=== PATIENT | male | born 1945 | race Caucasian/White ===

== ENCOUNTER 2017-07-28 08:55 | Inpatient (IN) | payer MEDICARE, OTHER ==
[2017-07-28] MEDS ORDERED: FLAGYL 500 MG IVPB 500 MG/100 ML BAG IV ONE (10:48)
[2017-07-28] MEDS ORDERED: ENTEREG 12 MG PO ONE (11:38)
[2017-07-28] MEDS ORDERED: Lactated Ringers 1,000 ML IV SCH (12:00)
[2017-07-28] MEDS ORDERED: MEFOXIN 2 GM PREMIX** 2 GM/50 ML ML IV SCH (12:00)
[2017-07-28] MEDS ORDERED: Lactated Ringers 1,000 ML IV ONE ×5 (12:02→17:19)
[2017-07-28] MEDS ORDERED: DILAUDID 2 MG INJECTION IV ONE (19:26)
[2017-07-28] MEDS ORDERED: Morphine PCA 1 MG/ML 30 ML IV PRN ×2 (19:29→21:47)
[2017-07-28] MEDS ORDERED: D5W/0.45NS W/ 20mEq KCl 1000 ML 1,000 ML IV ONE (19:46)
[2017-07-28] MEDS ORDERED: Narcan 0.4 MG/ML IV PRN (21:48)
[2017-07-28] MEDS ORDERED: Zofran 4 MG/2 ML VIAL IV PRN (22:40)
[2017-07-28] MEDS ORDERED: LOPRESSOR 5 MG/5 ML INJECTION IV PRN (22:41)
[2017-07-29] MEDS: MEFOXIN 1 Gm/ D5W 50 Ml** 1 G/50 ML ML IV SCH ×4 (02:53→17:31)
[2017-07-29 05:41] LABS: Mean Cell Volume 72.6 fl (78-100); Mean Platelet Volume 8.9 fl (6-9.5); Platelet Count 322 K/mm3 (150-450); Red Blood Count 4.52 M/mm3 (4.1-5.6); Red Cell Distribution Width 18.6 % (11.5-14.0); White Blood Count 13.1 K/mm3 (4.0-10.5)
[2017-07-29] MEDS: D5W/0.45NS W/ 20mEq KCl 1000 ML 1,000 ML IV SCH ×2 (06:06→17:30)
[2017-07-29 06:10] LABS: ANISOCYTOSIS 1+; BAND 3 % (0.0-2.0); Hypochromia 1+; Microcytosis 2+; Polychromasia 1+; Total Cells Counted 100
[2017-07-29 06:11] LABS: Platelet Estimate NORMAL (NORMAL)
[2017-07-29 06:13] LABS: ANION GAP 15.3 MEQ/L (5-15); Carbon Dioxide 23.6 mEq/L (21-32); Potassium 4.9 mEq/L (3.5-5.1)
[2017-07-29] MEDS ORDERED: ENTEREG 12 MG PO SCH (10:00)
[2017-07-29] MEDS ORDERED: ENOXAPARIN SODIUM SQ SCH ×2 (10:00)
[2017-07-29] MEDS ORDERED: Sodium Chloride 0.9% 1000 ML 1,000 ML IV STA (11:18)
--- NOTE | 2017-07-29 11:39 | XRAY ---
Exam: Bladder ultrasound from 07/29/2017. Comparison: CT of the abdomen and pelvis from 07/15/2017. Indication: Urine retention, one day status post partial colon resection. Findings: The lead medical technologist left a note that obtaining the necessary images of the urinary bladder was "very difficult" due to the bandages at the incision site. Longitudinal and transverse images of the urinary bladder measure approximately 7.35 cm in width, 6.0 cm in AP depth, and 6.3 cm in length suggesting an estimated urinary bladder volume of 145.3 ml. The visualized urinary bladder lumen appears unremarkable. The visualized urinary bladder wall appears essentially unremarkable. Bowel gas artifact is seen within the adjacent pelvic adnexa. Impression: 1. Limited urinary bladder ultrasound revealing an estimated urinary bladder volume of 145.3 ml. No other gross urinary bladder abnormality is seen.
[2017-07-29] MEDS ORDERED: SUBLIMAZE 100 MCG/2 ML IV ONE (15:10)
[2017-07-29] MEDS ORDERED: DIPRIVAN 200 MG/20 ML IV ONE (15:10)
[2017-07-29] MEDS ORDERED: Zemuron 100 MG/10 ML IV ONE (15:10)
[2017-07-29] MEDS ORDERED: Quelicin Fliptop 200 MG/10 ML IV ONE (15:10)
[2017-07-29] MEDS ORDERED: TORAdol 30 mg Injection IV ONE (15:10)
[2017-07-29] MEDS ORDERED: BRIDION 200MG/2ML IV ONE (15:10)
[2017-07-29] MEDS ORDERED: Decadron 4 MG INJ IV ONE (15:10)
[2017-07-29] MEDS ORDERED: DILAUDID 2 MG INJECTION IV ONE (15:10)
[2017-07-29] MEDS ORDERED: Zofran 4 MG/2 ML VIAL IV ONE (15:10)
[2017-07-29 16:22] VITALS: BP 125/75; PULSE 74; O2SAT 95
--- NOTE | 2017-08-01 16:23 | OP ---
THIS REPORT WAS AMENDED ON 07/31/17 SURGERY DATE: 07/28/17 SURGERY TIME: 1358 PREOPERATIVE DIAGNOSIS: 1. SPLENIC FLEXURE ADENOCARCINOMA. 2. SIGMOID COLON ADENOCARCINOMA. POSTOPERATIVE DIAGNOSIS: 1. SPLENIC FLEXURE ADENOCARCINOMA. 2. SIGMOID COLON ADENOCARCINOMA. PROCEDURE: 1. Left colectomy with colorectal anastomosis. 2. Complete hepatic flexure mobilization. 3. Diverting loop ileostomy. SURGEON: Agus Ray M.D. PUTTY AND PATCH WORKER: Marla Ray M.D. ANESTHESIA: General. SPECIMEN: 1. Left colon. COMPLICATIONS: None. ESTIMATED BLOOD LOSS: 50 cc. FINDINGS: Bulky splenic flexure tumor with dye marking the area, dye marking the sigmoid colon cancer polypectomy site. INDICATION: This 72 y/o male presents after colonoscopy by the injection maintenance technician where he found a large splenic flexure mass that was biopsied and shown to be adenocarcinoma. He also had a sigmoid colon polyp that was removed in its entirety, but was also adenocarcinoma with positive margins. The patient had a repeat colonoscopy with tattooing of the sigmoid polypectomy site. He also had a tattooing at his original colonoscopy of the splenic flexure mass. After informed consent and discussion of the risks and benefits of surgery, the patient agreed to proceed with resection of these 2 colon cancers. DESCRIPTION OF PROCEDURE: The patient was brought to the OR. Placed in a supine position. General endotracheal anesthesia was initiated. Abdomen was prepped and draped in sterile fashion. A generous midline incision was made. Scalpel was used for skin. The subq fat was taken down, but with electrocautery. The fascia was excised with electrocautery. The abdomen was entered in the upper abdomen. The peritoneum was grasped with clamps, lifted up, and opened sharply with Metzenbaum scissors. The rest of the peritoneum was then opened with direct visualization with electrocautery. The abdomen was explored. There were no lesions of the liver. The NG tube was in good position in the stomach. The splenic flexure mass was palpable and had some omentum stuck to it. There was also dye in this area. There was dye in the sigmoid colon from his prior tattooing. First, the left colon was mobilized along the white line of Toldt. The splenic flexure was then mobilized. He had a very high splenic flexure that was taken down with electrocautery and a ligature. The omentum was taken off the transverse colon and brought up to the hepatic flexure. The rest of the hepatic flexure was then taken down. Some of the omentum that was stuck to the area of the tumor was transected and sent with the specimen. To do so, we removed the omentum off of the greater curve of the stomach taking the short gastrics with ligature. Once the splenic flexure was fully mobilized, attention was turned to the pelvis. The sigmoid colon was mobilized. The mesentery was freed up carefully, not getting into the retroperitoneum. Dissection was made all the way down to the upper rectum. A point on the rectum was decided upon for transection. This area was cleared off and a contour stapler was used to transect the rectum. The mesentery was then on the ureters were visualized and well outside of the transection plane. The mesentery was then transected. The rest of the left colon mesentery was transected. The transverse colon was transected after placing a bowel clamp on the specimen side and transected sharply. A pursestring suture was then placed and the anvil was placed into the proximal side of the transverse colon. After the pursestring was placed, it was tied down. The mesentery was transected all the way up to the middle colic vessels which were spared. Next, the hepatic flexure was fully mobilized all the way to and then the right colon was mobilized. The colon was then rotated down and around to the transverse colon down into the pelvis. This reached without tension. The dilators were then passed up the rectum and then the 29 EEA stapler was passed up the rectum. The EEA stapler was advanced up into the rectum. The stapler was opened and pushed through to the rectum just posterior to the staple line. As the stapler was advanced through the rectal wall, there was a tear on the anterior aspect of the rectum. This was repaired with 3-0 Vicryl suture to bring it up into the staple line. The transverse colon was brought down to the EEA stapler and the anvil was placed on the stapler. The stapler was then closed. It was within the green lines. The stapler was then fired. The anastomosis appeared to be not on any tension. The anastomosis was scoped. There was no leak of any air with the anastomosis under water and the anastomosis looked good on colonoscopy. There was some concern with how easily tearable his rectum was that the decision was made at this point to perform a diverting loop ileostomy. The abdomen was copiously irrigated. A point was chosen in the right lower quadrant for the ileostomy. A quarter-sized [place] of skin was excised. The incision was taken down to the fascia. The fascia was incised with a cruciate incision. The muscles were spread and the peritoneum was incised. Two fingers could fit easily through the ostomy hole. A loop of terminal ileum was brought up through the ostomy with the proximal side superiorly. This was brought up with a [place] through the mesentery in between the bowel wall and the mesentery. This loop was brought up and then held with the Lory on a hemostat. The abdomen was irrigated and suctioned dry. There was some minor bleeding at the splenic flexure. Surgicel was placed at that site. Pressure was held for a while and then the packings were removed and the area appeared to be hemostatic. The Surgicel was left in place. The abdomen was then closed with 0 looped PDS from the inferior aspect and the superior aspect and the sutures were tied in the middle. Skin was closed with johny. Next, attention was turned to maturing the loop ileostomy. The bowel was incised and the ostomy was matured with 3-0 Vicryl suture. The [place] was sewn in place to prevent the ostomy from retracting. The [place] was then trimmed. Ostomy appliance was applied and a sterile dressing applied on the midline wound. The patient was recovered and taken to PACU with NG tube and Lizarraga catheter in place.
== END 2017-07-29 18:23 | disposition short-term general hospital (02) | DRG 330 ==
LOC: MED SURG 10:47
PROVIDERS: ADMIT Surgery; ATTEND Surgery
PROC: 0DTG0ZZ Resection of Left Large Intestine, Open Approach (ICD-10-PCS; principal; 2017-07-28)
PROC: 0D1B0Z4 Bypass Ileum to Cutaneous, Open Approach (ICD-10-PCS; 2017-07-28)
DX: C18.5 Malignant neoplasm of splenic flexure (principal); C18.7 Malignant neoplasm of sigmoid colon
CPT/HCPCS: 00840; 36415; 76705; 80048; 85025; 87086; 94760; 99100; J0330; J0694; J1100; J1170; J1650; J1885; J2270; J2405; J2704; J3010

== ENCOUNTER 2017-08-19 14:55 | Emergency (ER) | payer MEDICARE, OTHER ==
[2017-08-19] MEDS ORDERED: Zofran 4 MG/2 ML VIAL IV ONE (15:29)
[2017-08-19] MEDS ORDERED: Sodium Chloride 0.9% 1000 ML 1,000 ML IV STA (15:29)
--- NOTE | 2017-08-19 15:36 | ERPHSYRPT ---
- History of Present Illness Time Seen by Provider: 08/19/17 14:58 Historian: patient Exam Limitations: no limitations Patient Subjective Stated Complaint: Vomiting began last night. 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 Currently no nausea or pain, States med helped that they gave just ACCESSIBILITY LIFT TECHNICIAN, Colostomy intact to right abd with some air in bag. Physician History: mild diffuse abdominal cramping w/ NV for one day, hx bowel resection by Dr Lauren Ray 07/28 w/ colostomy for cancer, occasionally dizzy, no injury, no fever Timing/Duration: yesterday Activities at Onset: none Quality: cramping Abdominal Pain Onset Location: generalized abdomen Pain Radiation: no radiation Severity of Pain-Max: mild Severity of Pain-Current: mild Allergies/Adverse Reactions: ciprofloxacin [From Cipro] Allergy (Severe, Verified 08/09/17 09:19) Rash Home Medications: Lisinopril 20 mg [Zestril 20 MG] 20 mg PO DAILY 07/23/17 [History] Ferrous Sulfate 325 mg [Feosol 325 mg] 325 mg PO BID 08/09/17 [History] Acetaminophen [Tylenol] 650 mg PO Q4HPRN PRN 08/19/17 [History] Cholestyramine Light 4 gm [QUESTRAN Light 4 GM Packet] 1 pack PO QID PRN 08/19/17 [History] Magnesium Hydroxide 30 ml [Milk of Magnesia 30 ml] 15 ml PO DAILY [History] Hx Tetanus, Diphtheria Vaccination/Date Given: No Hx Influenza Vaccination/Date Given: No Hx Pneumococcal Vaccination/Date Given: No Immunizations Up to Date: Yes - Review of Systems Constitutional: Fatigue, No Fever Eyes: No Symptoms Ears, Nose, & Throat: No Symptoms Respiratory: No Symptoms Cardiac: No Symptoms Abdominal/Gastrointestinal: Abdominal Pain, Nausea, Vomiting Genitourinary Symptoms: No Dysuria Musculoskeletal: No Back Pain Skin: No Skin Lesions Neurological: Dizziness Psychological: No Symptoms - Past Medical History Pertinent Past Medical History: Yes (Syncope, ARF) Neurological History: No Pertinent History ENT History: No Pertinent History Cardiac History: Hypertension, Other Respiratory History: No Pertinent History Endocrine Medical History: No Pertinent History Musculoskeletal History: No Pertinent History GI Medical History: Colorectal Cancer History: Other Psycho-Social History: No Pertinent History Male Reproductive Disorders: Prostate Cancer Other Medical History: Anemia, Acute Kidney Failure, Prostate Cancer - Past Surgical History Past Surgical History: Yes Neuro Surgical History: No Pertinent History Cardiac: No Pertinent History Respiratory: No Pertinent History Gastrointestinal: Colon Resection Genitourinary: No Pertinent History Musculoskeletal: Orthopedic Surgery Male Surgical History: Prostate Surgery Other Surgical History: right hip repair. right knee replacement. colostomy - Social History Smoking Status: Never smoker Exposure to second hand smoke: No Drug Use: none Patient Lives Alone: Yes - Nursing Vital Signs Nursing Vital Signs: Initial Vital Signs Temperature 97.3 F 08/19/17 14:58 Pulse Rate 96 H 08/19/17 14:58 Respiratory Rate 20 08/19/17 14:58 Blood Pressure 88/57 08/19/17 14:58 O2 Sat by Pulse Oximetry 96 08/19/17 14:58 Pain Scale Pain Intensity 0 - Physical Exam General Appearance: no apparent distress Eye Exam: PERRL/EOMI, eyes nml inspection Ears, Nose, Throat Exam: moist mucous membranes Neck Exam: normal inspection Respiratory Exam: normal breath sounds Cardiovascular Exam: regular rate/rhythm Gastrointestinal/Abdomen Exam: soft, tenderness, other (surgical staple line intact, colostomy intact), No rebound Back Exam: No CVA tenderness Extremity Exam: normal range of motion, pelvis stable Neurologic Exam: alert, oriented x 3, cooperative Skin Exam: warm, dry SpO2: 96 Oxygen Delivery: Room Air - Course Nursing assessment & vital signs reviewed: Yes EKG Interpreted by Me: Other (nsr 87 no stemi no peaked t waves) - Radiology Exams Chest X-ray Interpretation: Discussed w/ radiologist, Negative - CT Exams Abdomen CT Interpretation: Discussed w/radiologist, Other (ileus, no free air, no obstruction) Ordered Tests: Active Orders 24 hr Category Date Time Status EKG-ER Only STAT Care 08/19/17 15:29 Active IV Insertion STAT Care 08/19/17 15:29 Active ABDOMEN AND PELVIS W/0 CONTRAS [CT] Stat Exams 08/19/17 15:30 Completed CHEST 1 VIEW (PORTABLE) Stat Exams 08/19/17 15:30 Completed BLOOD CULTURE Stat Lab 08/19/17 16:20 Received CBC W DIFF Stat Lab 08/19/17 15:55 Completed CMP Stat Lab 08/19/17 15:55 Completed LIPASE Stat Lab 08/19/17 15:55 Completed Lactic Acid Stat Lab 08/19/17 15:29 Results Manual Differential NC Stat Lab 08/19/17 15:55 Completed PROTIME WITH INR Stat Lab 08/19/17 15:55 Completed TROPONIN Q3H Lab 08/19/17 15:55 Completed TROPONIN Q3H Lab 08/19/17 18:30 Ordered TROPONIN Q3H Lab 08/19/17 21:30 Ordered TROPONIN Q3H Lab 08/20/17 00:30 Ordered TROPONIN Q3H Lab 08/20/17 03:30 Ordered UA W/RFX UR CULTURE Stat Lab 08/19/17 15:30 Ordered VENOUS BLOOD GAS Stat Lab 08/19/17 16:01 Completed VENOUS BLOOD GAS Stat Lab 08/19/17 16:04 Ordered Medication Summary Generic Name Dose Route Start Last Admin Trade Name Freq PRN Reason Stop Dose Admin Sodium Chloride 1,000 mls @ 999 mls/hr 08/19/17 16:15 08/19/17 17:05 Sodium Chloride 0.9% 1000 Ml IV 08/19/17 19:15 Not Given .Q1H1M SON Discontinued Medications Generic Name Dose Route Start Last Admin Trade Name Freq PRN Reason Stop Dose Admin Calcium Gluconate 1,000 mg 08/19/17 16:42 08/19/17 17:05 Calcium Gluconate 10% 1000 Mg IV 08/19/17 16:43 1,000 mg STAT ONE Administration Calcium Gluconate Confirm 08/19/17 16:50 Calcium Gluconate 10% 1000 Mg Administered 08/19/17 16:51 Dose 1,000 mg IV .STK-MED ONE Dextrose 50 ml 08/19/17 16:43 08/19/17 17:09 D50w 50 Ml Abboject IV 08/19/17 16:44 50 ml STAT ONE Administration Dextrose Confirm 08/19/17 16:53 D50w 50 Ml Abboject Administered 08/19/17 16:54 Dose 50 ml IV .STK-MED ONE Sodium Chloride 1,000 mls @ 999 mls/hr 08/19/17 15:29 08/19/17 15:57 Sodium Chloride 0.9% 1000 Ml IV 08/19/17 16:29 999 mls/hr .Q1H1M STA Administration Sodium Chloride Confirm 08/19/17 15:51 Sodium Chloride 0.9% 1000 Ml Administered 08/19/17 15:52 Dose 1,000 mls @ ud .ROUTE .STK-MED ONE Piperacillin Sod/Tazobactam Sod 3.375 gm in 100 mls @ 200 mls/hr 08/19/17 16: 04 08/19/17 16:23 Zosyn 3.375gm/100 Ml D5w IV 08/19/17 16:33 200 mls/hr STAT STA Administration Piperacillin Sod/Tazobactam Sod Confirm 08/19/17 16:20 Zosyn 3.375gm/100 Ml D5w Administered 08/19/17 16:21 Dose 3.375 gm in 100 mls @ ud IV .STK-MED ONE Sodium Chloride Confirm 08/19/17 16:55 Sodium Chloride 0.9% 100 Ml Ivpb Administered 08/19/17 16:56 Dose 100 mls @ ud IV .STK-MED ONE Insulin Human Regular 3 unit 08/19/17 16:43 08/19/17 16:52 Novolin R IV 08/19/17 16:44 3 unit STAT ONE Administration Insulin Human Regular Confirm 08/19/17 16:52 Novolin R Administered 08/19/17 16:53 Dose 3 unit .ROUTE .STK-MED ONE Ondansetron HCl 4 mg 08/19/17 15:29 08/19/17 16:03 Zofran 4 Mg/2 Ml Vial IV 08/19/17 15:30 4 mg STAT ONE Administration Ondansetron HCl Confirm 08/19/17 16:01 Zofran 4 Mg/2 Ml Vial Administered 08/19/17 16:02 Dose 4 mg .ROUTE .STK-MED ONE Lab/Rad Data: Laboratory Result Diagrams 08/19/17 15:55 08/19/17 15:55 Laboratory Results 08/19/17 08/19/17 08/19/17 Range/Units 16:01 15:55 15:55 WBC (4.0-10.5) K/mm3 RBC (4.1-5.6) M/mm3 Hgb (12.5-18.0) gm/dl Hct (42-50) % MCV (78-100) fl MCH (26-32) pg MCHC (32-36) g/dl RDW (11.5-14.0) % Plt Count (150-450) K/mm3 MPV (6-9.5) fl Segmented Neutrophils (36.-66.) % Lymphocytes (Manual) (24-44) % Monocytes (Manual) (0.0-12.0) % Differential Comment Platelet Estimate (NORMAL) Poikilocytosis Anisocytosis Microcytosis Ovalocytes INR 1.13 (0.8-3.0) VBG pH 7.27 L (7.32-7.42) VBG pCO2 at Pat Temp 40 L (42-55) mm/Hg VBG pO2 at Pat Temp 19 L (25-40) mm/Hg VBG HCO3 18.4 L (22-28) meq/L VBG O2 Sat (Dangelo) 29.7 L (95-100) VBG Base Excess -8.0 L (-2.0-2.0) VBG Hemoglobin 14.0 VBG Carboxyhemoglobin 1.3 (0.0-6.9) % T HGB POC Potassium 6.9 H* (3.5-5.1) Sodium (136-145) mEq/L Potassium (3.5-5.1) mEq/L Chloride (98-107) mEq/L Carbon Dioxide (21-32) mEq/L Anion Gap (5-15) MEQ/L BUN (9-20) mg/dL Creatinine (0.55-1.30) mg/dl Estimated GFR ML/MIN Glucose (70-110) MG/DL Lactic Acid (0.4-2.0) Calcium (8.5-10.1) mg/dL Total Bilirubin (0.2-1.0) mg/dL AST (15-37) U/L ALT (12-78) U/L Alkaline Phosphatase (46-116) U/L Troponin I < 0.017 (0.000-0.056) ng/ml Serum Total Protein (6.4-8.2) gm/dL Albumin (3.4-5.0) g/dL Lipase (73-393) U/L 08/19/17 08/19/17 08/19/17 Range/Units 15:55 15:55 15:29 WBC 13.5 H (4.0-10.5) K/mm3 RBC 5.57 (4.1-5.6) M/mm3 Hgb 13.2 (12.5-18.0) gm/dl Hct 42.0 (42-50) % MCV 75.4 L (78-100) fl MCH 23.7 L (26-32) pg MCHC 31.4 L (32-36) g/dl RDW 25.1 H (11.5-14.0) % Plt Count 358 (150-450) K/mm3 MPV 10.0 H (6-9.5) fl Segmented Neutrophils 72 H (36.-66.) % Lymphocytes (Manual) 27 (24-44) % Monocytes (Manual) 1 (0.0-12.0) % Differential Comment ABNORMAL Platelet Estimate NORMAL (NORMAL) Poikilocytosis 1+ Anisocytosis 3+ Microcytosis 1+ Ovalocytes 1+ INR (0.8-3.0) VBG pH (7.32-7.42) VBG pCO2 at Pat Temp (42-55) mm/Hg VBG pO2 at Pat Temp (25-40) mm/Hg VBG HCO3 (22-28) meq/L VBG O2 Sat (Dangelo) (95-100) VBG Base Excess (-2.0-2.0) VBG Hemoglobin VBG Carboxyhemoglobin (0.0-6.9) % T HGB POC Potassium (3.5-5.1) Sodium 137 (136-145) mEq/L Potassium 6.8 H* (3.5-5.1) mEq/L Chloride 104 (98-107) mEq/L Carbon Dioxide 18.3 L (21-32) mEq/L Anion Gap 21.7 H (5-15) MEQ/L BUN 73 H (9-20) mg/dL Creatinine 5.46 H (0.55-1.30) mg/dl Estimated GFR 11 ML/MIN Glucose 142 H (70-110) MG/DL Lactic Acid 3.3 H (0.4-2.0) Calcium 10.3 H (8.5-10.1) mg/dL Total Bilirubin 0.40 (0.2-1.0) mg/dL AST 20 (15-37) U/L ALT 38 (12-78) U/L Alkaline Phosphatase 91 (46-116) U/L Troponin I (0.000-0.056) ng/ml Serum Total Protein 8.5 H (6.4-8.2) gm/dL Albumin 3.7 (3.4-5.0) g/dL Lipase 734 H (73-393) U/L - Progress Progress: improved Discussed with : Brian Counseled pt/family regarding: lab results, diagnosis, need for follow-up, rad results (Dr Meredith advised transfer) - Departure Time of Disposition: 17:27 Departure Disposition: Transfer Clinical Impression: Hyperkalemia, Ileus Hypotension Qualifiers: Hypotension type: unspecified hypotension type Qualified Code(s): I95.9 - Hypotension, unspecified Renal failure Qualifiers: Renal failure chronicity: acute Acute renal failure type: unspecified Qualified Code(s): N17.9 - Acute kidney failure, unspecified Condition: Fair Critical Care Time: No Referrals: CEDRIC MEREDITH MD [Primary Care Provider] - Additional Instructions: pt accepted to [facility] by Dr Renny Banerjee
[2017-08-19] MEDS ORDERED: Sodium Chloride 0.9% 1000 ML 1,000 ML ONE ×2 (15:51→16:20)
[2017-08-19 15:58] LABS: Lactic Acid 3.3 (0.4-2.0)
[2017-08-19] MEDS ORDERED: Zofran 4 MG/2 ML VIAL ONE (16:01)
[2017-08-19 16:02] LABS: VBG CARBOXYHEMOGLOBIN 1.3 % T HGB (0.0-6.9); VBG HCO3- 18.4 meq/L (22-28); VBG O2 SATURATION 29.7 (95-100); VBG pH 7.27 (7.32-7.42)
[2017-08-19 16:03] LABS: VBG POTASSIUM 6.9 (3.5-5.1)
[2017-08-19] MEDS ORDERED: Zosyn 3.375GM/100 Ml D5W 3.375 GM/100 ML IVPB IV STA (16:04)
[2017-08-19 16:08] LABS: Mean Cell Volume 75.4 fl (78-100); Mean Corpuscular Hemoglobin 23.7 pg (26-32); Platelet Count 358 K/mm3 (150-450); Red Blood Count 5.57 M/mm3 (4.1-5.6); Red Cell Distribution Width 25.1 % (11.5-14.0); White Blood Count 13.5 K/mm3 (4.0-10.5)
[2017-08-19 16:18] LABS: INR 1.13 (0.8-3.0); PROTIME 12.6 SECONDS (8.83-12.87)
[2017-08-19] MEDS ORDERED: Zosyn 3.375GM/100 Ml D5W 3.375 GM/100 ML IVPB IV ONE (16:20)
[2017-08-19 16:27] LABS: ALBUMIN 3.7 g/dL (3.4-5.0); ANION GAP 21.7 MEQ/L (5-15); BILIRUBIN,TOTAL 0.4 mg/dL (0.2-1.0); Carbon Dioxide 18.3 mEq/L (21-32); Total Protein 8.5 gm/dL (6.4-8.2)
[2017-08-19 16:31] LABS: Potassium 6.8 mEq/L (3.5-5.1)
--- NOTE | 2017-08-19 16:32 | XRAY ---
Indication: Pain and vomiting. Comparison: August 09, 2017. Portable chest remains clear. Heart is not enlarged. No new/acute findings.
[2017-08-19] MEDS: Sodium Chloride 0.9% 1000 ML 1,000 ML IV SCH ×3 (16:33→17:05)
--- NOTE | 2017-08-19 16:37 | XRAY ---
Indication: Mid abdominal pain. Nausea and vomiting. Status post colon surgery July 28, 2017 for colon cancer. Multiple contiguous axial images obtained through the abdomen and pelvis without contrast as ordered. Comparison: July 15, 2017. Lung bases again demonstrates minimal bibasilar dependent atelectasis and left base calcified granuloma heart is not enlarged. Stomach is now moderately fluid distended. Noncontrasted small bowel loops are mildly fluid distended as well with synchronous fluid leveling. Above findings either ileus versus gastroenteritis. There has been interval left hemicolectomy with diverting right lower quadrant ostomy. Sigmoid anastomosis intact. In the left colic gutter is a new small irregular fluid collection measuring 3.1 x 4.9 cm without air bubbles possibly postoperative hematoma/seroma. Infected fluid collection not completely excluded on this noncontrast exam. No free air. Stable left upper renal cyst and a few calcified splenic granulomas. Remaining liver, gallbladder, pancreas, spleen, adrenal glands, kidneys, ureters, and bladder appear unremarkable for noncontrast exam. There remains minimal aortoiliac calcifications without AAA. Osseous structures again demonstrates moderate/advanced degenerative changes throughout the spine and right hip arthroplasty. Impression: 1. Status post left hemicolectomy with right lower quadrant diverting ostomy. Small fluid collection in the left colic gutter may represent postoperative hematoma/seroma though infected fluid collection not completely excluded. 2. Fluid distended stomach and small bowel loops with fluid leveling, ileus versus gastroenteritis. 3. Stable left renal cortical cyst and evidence for old granulomatous disease. CT DI 23.24
[2017-08-19] MEDS ORDERED: Calcium Gluconate 10% 1000 MG IV ONE ×2 (16:42→16:50)
[2017-08-19] MEDS ORDERED: D50W 50 ml Abboject IV ONE ×2 (16:43→16:53)
[2017-08-19] MEDS ORDERED: NovoLIN R IV ONE (16:43)
[2017-08-19 16:44] LABS: Total Cells Counted 100
[2017-08-19 16:45] LABS: ANISOCYTOSIS 3+; Microcytosis 1+; Ovalocytes 1+
[2017-08-19 16:46] LABS: Platelet Estimate NORMAL (NORMAL); Poikilocytosis 1+
[2017-08-19] MEDS ORDERED: NovoLIN R ONE (16:52)
[2017-08-19] MEDS ORDERED: Sodium Chloride 0.9% 100 ML IVPB 100 ML IV ONE (16:55)
[2017-08-19] MEDS ORDERED: Sodium Chloride 0.9% 1000 ML 2,000 ML ONE (16:58)
[2017-08-19 17:31] VITALS: O2SAT 96
[2017-08-19 18:13] VITALS: BP 133/74; PULSE 88
== END 2017-08-19 18:15 | disposition short-term general hospital (02) ==
LOC: ED 14:55
DX: E87.5 Hyperkalemia (principal); K56.7 Ileus, unspecified; I95.9 Hypotension, unspecified; N17.9 Acute kidney failure, unspecified; Z79.899 Other long term (current) drug therapy
CPT/HCPCS: 36000; 36415; 71010; 74176; 80053; 82805; 83605; 83690; 84484; 85025; 85610; 87040; 93005; 96360; 96361; 96365; 99283; 99285; J0610; J2405; J2543; A9270-GY